=== PATIENT | male | born 1950 | race Caucasian/White ===

== ENCOUNTER 2020-06-16 06:41 | Outpatient (CLI) | payer MEDICARE, OTHER ==
--- NOTE | 2020-06-16 10:39 | RAD ---
TWO VIEW CHEST: HISTORY: Preop. FINDINGS: Lungs appear clear. No evidence of infiltrate. Heart and mediastinum unremarkable. Degenerative sp ine changes. IMPRESSION: No evidence of acute process. POS: OFF
[2020-06-16 11:15] LABS: #Eosinphils 0.1 thou/uL (0.0-0.7); #Lymphocytes 1.3 thou/uL (1.20-3.40); #Monocytes 0.6 thou/uL (0.11-0.59); #Neutrophils 5.2 thou/uL (1.40-6.50); %Basophils 0.6 % (0.0-1.0); %Eosinophils 1.3 % (0.0-10.0); %Lymphocytes 17.9 % (21.0-51.0); %Monocytes 7.9 % (0.0-10.0); %Neutrophils 72.3 % (42.0-75.0); Hemoglobin 15.7 g/dL (14.0-18.0); Mean Corpuscular HGB CONC 34.8 g/dL (32.0-36.0); Mean Corpuscular Hemoglobin 33.4 pg (27.0-31.0); Mean Corpuscular Volume 96.1 fL (78.0-98.0); Mean Platelet Volume 8.6 fL (7.4-10.4); Platelet Count 187 thou/uL (130-400); Red Blood Cell (RBC) Count 4.69 mill/uL (4.70-6.10); White Blood Cell (WBC) Count 7.2 thou/uL (4.8-10.8)
[2020-06-16 11:24] LABS: Anion Gap 16 mmol/L (10-20); BUN (Urea Nitrogen) 9 mg/dL (8.4-25.7); Calc. Creatinine Clearance 0 mL/min (70-130); Calcium 9.2 mg/dL (7.8-10.44); Carbon Dioxide 20 mmol/L (23-31); Chloride 103 mmol/L (98-107); Estimated GFR-MDRD Greater than 90; Glucose 92 mg/dL (83-110); Potassium 4.4 mmol/L (3.5-5.1); Sodium 135 mmol/L (136-145)
[2020-06-16 16:25] LABS: SARS-CoV-2 MS2 Positive; SARS-CoV-2 N Gene Negative; SARS-CoV-2 S Gene Negative; SARS-CoV-2 by NAA Not Detected (NotDetected); SARS-CoV-2 orf1ab Negative
--- NOTE | 2020-06-18 12:07 | EKG ---
Test Reason : Blood Pressure : / mmHG Vent. Rate : 093 BPM Atrial Rate : 093 BPM P-R Int : 134 ms QRS Dur : 114 ms QT Int : 382 ms P-R-T Axes : 088 097 067 degrees QTc Int : 474 ms Sinus rhythm with occasional Premature ventricular complexes Right bundle branch block Abnormal ECG No previous ECGs available Confirmed by GÉNESIS BOATENG (2) on 06/18/2020 12:07:33 PM Referred By: GLEN Confirmed By:GÉNESIS BOATENG
== END 2020-06-16 06:42 | disposition home or self-care (01) ==
LOC: LABBT 06:41 → SCSRAD 06:42
PROVIDERS: ATTEND Specialist
DX: Z01.818 Encounter for other preprocedural examination (principal); K40.90 Unilateral inguinal hernia, without obstruction or gangrene, not specified as recurrent; Z20.828 Contact with and (suspected) exposure to other viral communicable diseases
CPT/HCPCS: 71046; 80048; 85025; 87635; 93005; 93010; U0003

== ENCOUNTER 2020-06-21 06:40 | Day surgery (SDC) | payer MEDICARE ==
--- NOTE | 2020-06-20 06:08 | HP ---
HISTORY OF PRESENT ILLNESS: Chuckie Patel is a 70-year-old male patient, 22 BMI, 144 pounds. Noticed a left inguinal hernia for several weeks. He underwent a CAT scan confirming that. The patient was referred for evaluation. Evaluation in the office reveals a left inguinal hernia on standing, enlarges on Valsalva, and a right inguinal hernia on standing. His testicles are normal. I have recommended robot mesh repair as an outpatient. He understands risks and benefits and consents. We will plan robot mesh repair of bilateral inguinal hernias. ALLERGIES: NONE. SOCIAL HISTORY: Tobacco, none for 20 years, used prior to that. MEDICATIONS: Lisinopril 20 mg a day. PAST MEDICAL HISTORY: Hypertension. PAST SURGICAL HISTORY: Aortic arch aneurysm repair, , [place], 1989. Right knee surgery from athletic accident as a young man many years ago. The patient followed by Dr. Bar in [place]. PHYSICAL EXAMINATION: VITAL SIGNS: 144 pounds, 67 inches, 22 BMI, blood pressure 154/75, pulse 93, temperature 98.2 degrees. HEAD: Ears, eyes, nose, and throat unremarkable. LUNGS: Clear to auscultation. CARDIAC: Regular rate and rhythm without murmur or gallop. ABDOMEN: Soft, nontender. No masses. EXTREMITIES: Unremarkable. No ankle edema. : Testicles normal. Both groins with a hernia on Valsalva. Left groin hernia is present on standing, enlarges on Valsalva. ASSESSMENT AND PLAN: Bilateral inguinal hernias, left larger than right. PLAN: Robot mesh repair as an outpatient. He understands the risks, benefits, consents. Job ID: [id number]
[~2020-06-21 06:40] MED LIST: Acetaminophen 500 MG TAB ONE; Ketorolac Tromethamine 30 MG/ML VIAL ONE
[2020-06-21] MEDS ORDERED: Bupivacaine/Epinephrine 0.25% 30 ML VIAL ONE ×2 (07:07→08:05)
[2020-06-21] MEDS ORDERED: Fentanyl 100 MCG/2 ML VIAL ONE ×3 (07:09→10:06)
[2020-06-21] MEDS ORDERED: SUGAMMADEX SODIUM 500 MG/5 ML VIAL ONE (07:09)
[2020-06-21] MEDS ORDERED: Phenylephrine 10 MG/ML VIAL ONE (07:32)
[2020-06-21] MEDS ORDERED: Dexamethasone 20 MG/5 ML VIAL ONE (10:47)
[2020-06-21] MEDS ORDERED: PROPOFOL 200 MG/20 ML VIAL ONE (10:47)
[2020-06-21] MEDS ORDERED: EPHEDRINE 25 MG/5 ML SYRINGE ONE (10:47)
[2020-06-21] MEDS ORDERED: Ondansetron PF 4 MG/2 ML Vial ONE (10:47)
[2020-06-21] MEDS ORDERED: Lidocaine 1% PF 5 ML VIAL ONE (10:47)
[2020-06-21] MEDS ORDERED: PHENYLEPHRINE-NS 100 MCG/ML 10 ML SYRINGE ONE (10:47)
[2020-06-21] MEDS ORDERED: Rocuronium Bromide 10 MG/ML (10ML VIAL) ONE (10:47)
--- NOTE | 2020-06-21 13:06 | OP ---
DATE OF PROCEDURE: 06/21/2020 PREOPERATIVE DIAGNOSIS: Bilateral inguinal hernias. POSTOPERATIVE DIAGNOSIS: Bilateral inguinal hernias. PROCEDURES PERFORMED: Robot/laparoscopic repair of bilateral inguinal hernias, 3D Bard Max large mesh on each side, right and left. ANESTHESIA: General, local 0.25% Marcaine with epinephrine 45 mL. DESCRIPTION OF PROCEDURE: Patient was taken to the operating room where under general anesthesia, Dumas catheter was placed at the beginning of the procedure and removed at the end. Abdomen clipped of hair, prepared with ChloraPrep and draped in routine fashion. Local anesthetic infiltrated in skin and subcutaneous tissue about the port sites and for ilioinguinal nerve block on the right and left. Incision was made for the ports. Left paramedian supraumbilical and pneumoperitoneum to 15 mmHg was obtained with a Veress needle, replaced with an 11 balloon port. Bilateral lateral abdominal incision was made just above the umbilical level and 8 mm ports placed. Robot docked, positioned the patient in slight Trendelenburg, and bilateral inguinal hernia repair was undertaken by taking down peritoneal flaps from the midline to the anterior superior iliac spine on either side, dissecting free peritoneal flaps laterally and medially, preserving the inferior epigastric vessels and dissecting large hernia sacs from the cord structures. Once hernia sac was dissected free without violation of the peritoneum, skeletonizing about 8 cm of cord structures, 3D Bard mesh large placed on the right and left side, properly oriented, securing the mesh medially on both sides to Carlos ligament with 2-0 Vicryl and to the anterior abdominal wall with 2-0 Vicryl sutures on both sides just lateral to the inferior epigastric vessels. Once the mesh was properly positioned, good hemostasis was noted. Peritoneal flaps on both sides closed with continuous suture of #3-0 V-Loc suture. Once this was completed, pneumoperitoneum reduced, all instruments removed. Good hemostasis noted, and all skin incisions were approximated with subdermal 4-0 Monocryl, approximating the anterior rectus fascia, left paramedian with 0 Vicryl on UR needle. The patient tolerated the procedure. Job ID: [id number]
== END 2020-06-21 11:50 | disposition home or self-care (01) ==
LOC: SDC 06:40
PROVIDERS: ATTEND Specialist
PROC: 0YUA4JZ Supplement Bilateral Inguinal Region with Synthetic Substitute, Percutaneous Endoscopic Approach (ICD-10-PCS; principal; 2020-06-21)
DX: K40.20 Bilateral inguinal hernia, without obstruction or gangrene, not specified as recurrent (principal); I10 Essential (primary) hypertension; Z79.899 Other long term (current) drug therapy; Z87.891 Personal history of nicotine dependence
CPT/HCPCS: 49650; C1781; J0690; J1100; J1885; J2370; J2405; J2704; J3010